=== PATIENT | female | born 1995 ===

== ENCOUNTER 2025-01-16 05:42 | Day surgery (SDC) | payer OTHER ==
[2025-01-16] MEDS ORDERED: MIDAZOLAM HCL/PF 5 MG/ML VIAL IV ONE (08:15)
[2025-01-16] MEDS ORDERED: DIPHENHYDRAMINE HCL 50 MG/ML VIAL 1ML IV ONE (08:15)
[2025-01-16] MEDS ORDERED: fentaNYL CITRATE 50 MCG/ML AMPUL IV PUSH ONE (08:15)
== END 2025-01-16 09:00 | disposition home or self-care (01) ==
LOC: AMB-ENDOS 05:42
PROVIDERS: ATTEND Surgery
DX: K21.9 Gastro-esophageal reflux disease without esophagitis (principal); K29.80 Duodenitis without bleeding; K44.9 Diaphragmatic hernia without obstruction or gangrene; E66.09 Other obesity due to excess calories; R10.13 Epigastric pain